=== PATIENT | female | born 1980 | race American Indian/Alaskan Native ===

== ENCOUNTER 2019-09-07 11:02 | Emergency (ER) | payer BC ==
[2019-09-07 11:07] VITALS: BP 178/108
--- NOTE | 2019-09-07 11:41 | XRay Report ---
XR RIGHT FINGERS 3 VIEWS INDICATION / CLINICAL INFORMATION: Trauma COMPARISON: None available. FINDINGS: BONES / JOINT(S): Fine osseous detail is slightly obscured by overlying bandage material. Allowing fo r this, there appears to be a minimally displaced fracture of the tuft of the thumb distal phalanx. SOFT TISSUES: Mild soft tissue swelling and irregularity of the thumb. ADDITIONAL FINDINGS: None. Signer Name: Eva Brown MD Signed: 09/07/2019 11:36 AM Workstation Name: [id number]
[2019-09-07] MEDS ORDERED: oxyCODONE /ACETAMINOPHEN 5-325MG TAB PO ONE (12:20)
--- NOTE | 2019-09-07 12:36 | Emergency Department Report ---
- General Chief Complaint: Laceration/Recheck/Suture Stated Complaint: RT THUMB LAC Source: patient Mode of arrival: Ambulatory Limitations: No Limitations - History of Present Illness Initial Comments: 38-year-old female who reports getting laceration while using her NINGA machine. She has alaceration of her left thumb,laceration of her left middle finger and an abrasion noted of left third finger. Tetanus up todate. Active bleeding of left thumb -: Sudden, hour(s) (1) Location: other (left hand) Extremity Location: Left: Hand (left thumb, left middle finger and left 4th finger abrasion) Place: home Patient Tetanus UTD: Yes Context: accidental Associated Symptoms: pain. denies: loss of feeling/numbness, suspect foreign body present, unable to move injured part, weakness followed by dizziness, nausea/vomiting Treatments Prior to Arrival: other (pressure dressing) - Related Data Previous Rx's Medication Instructions Recorded Last Taken Type Ibuprofen [Motrin] 600 mg PO Q6H PRN #24 tablet 09/07/19 Unknown Rx cephALEXin [Keflex] 500 mg PO Q12HR 14 Days #7 cap 09/07/19 Unknown Rx Allergies Allergy/AdvReac Type Severity Reaction Status Date / Time Iodine and Iodide Containing Allergy Hives Verified 09/07/19 11:07 Produc ED Review of Systems ROS: Stated complaint: RT THUMB LAC Other details as noted in HPI Comment: All other systems reviewed and negative Skin: other (left thumb laceration, left middle finger laceration , left 4th finger abrasion) ED Past Medical Hx - Past Medical History Previous Medical History?: No - Surgical History Past Surgical History?: Yes Additional Surgical History: Breast reduction 2007 - Social History Smoking Status: Never Smoker Substance Use Type: None - Medications Home Medications: Home Medications Medication Instructions Recorded Confirmed Last Taken Type Ibuprofen [Motrin] 600 mg PO Q6H PRN #24 tablet 09/07/19 Unknown Rx cephALEXin [Keflex] 500 mg PO Q12HR 14 Days #7 cap 09/07/19 Unknown Rx ED Physical Exam - General Limitations: No Limitations General appearance: alert - Head Head exam: Present: atraumatic - Eye Eye exam: Present: normal appearance. Absent: conjunctival injection - ENT ENT exam: Present: mucous membranes moist - Neck Neck exam: Present: normal inspection - Cardiovascular Cardiovascular Exam: Present: regular rate, normal heart sounds - Expanded Upper Extremity Exam Left Hand Wrist exam: Present: full ROM, nail avulsion (partial nail avulsion of the left thumb + bleeding, linear superficial laceration to left middle finger 1cm. Left 4th finger abrasion) Neuro motor exam: Present: thumb adduction intact, fingers 2-5 abduction intact Vascular: Present: radial pulse. Absent: vascular compromise, pulse deficit radial art - Neurological Exam Neurological exam: Present: alert, oriented X3 - Skin Skin exam: Present: warm, dry ED Course Vital Signs 09/07/19 11:05 Temperature 98.5 F Pulse Rate 78 Respiratory 18 Rate Blood Pressure 178/108 O2 Sat by Pulse 98 Oximetry - Laceration /Wound Repair Left Proximal Finger Wound Location: upper extremity Wound's Depth, Shape: nail-avulsed (left thumb partially avulsed nail.) Wound Explored: no foreign body removed Betadine Prep?: Yes Wound Repaired With: Dermabond (left middle finger dermabond used to close wound) Layer Closure?: No Sterile Dressing Applied?: Yes ED Medical Decision Making - Radiology Data Left hand xray FINDINGS: BONES / JOINT(S): Fine osseous detail is slightly obscured by overlying bandage material. Allowing for this, there appears to be a minimally displaced fracture of the tuft of the thumb distal phalanx. SOFT TISSUES: Mild soft tissue swelling and irregularity of the thumb. - Medical Decision Making 38 yo female sustained left thumb , left 3rd digit laceration and left 4th finger abrasion while using NINJA machine. Tetanus up to date. Xray of left hand + for left distal thumb tuft fracture. Partial nail avulsion of the left thumb. Left middle finger with superficial laceration closed with skin adhesive. Pt instruct of findings. Left thumb clean dry dressing and finger splint. Wound care instructions, oral antibiotics and ortho follow given. Critical care attestation.: If time is entered above; I have spent that time in minutes in the direct care of this critically ill patient, excluding procedure time. ED Disposition Clinical Impression: Laceration of finger nail bed Qualifiers: Encounter type: initial encounter Qualified Code(s): S61.319A - Laceration without foreign body of unspecified finger with damage to nail, initial encounter Fracture of distal phalanx of left thumb Qualifiers: Encounter type: initial encounter Fracture type: open Disposition: - TO HOME OR SELFCARE Is pt being admited?: No Does the pt Need Aspirin: No Condition: Stable Instructions: Finger Fracture (ED), Skin Adhesive Care (ED) Prescriptions: cephALEXin [Keflex] 500 mg PO Q12HR 14 Days #7 cap Ibuprofen [Motrin] 600 mg PO Q6H PRN #24 tablet PRN Reason: Pain Referrals: PRIMARY CAREMD [Referring] - 3-5 Days RUTH SUGGS MD [Staff Physician] - 3-5 Days Time of Disposition: 13:25
[2019-09-07] MEDS ORDERED: BACITRACIN ZINC OINT 28.4 GM TP ONE (13:09)
[2019-09-07] MEDS ORDERED: NEOMY 3.5 MG/BACIT 400 UNITS/POLY B 5000 UNITS/GM OINT PACKET TP ONE (14:03)
[2019-09-07] MEDS ORDERED: NEOMY 3.5 MG/BACIT 400 UNITS/POLY B 5000 UNITS OINT 15 GM TP ONE (15:03)
== END 2019-09-07 15:08 | disposition home or self-care (01) ==
LOC: ED 11:02
DX: S62.522B Displaced fracture of distal phalanx of left thumb, initial encounter for open fracture (principal); S61.213A Laceration without foreign body of left middle finger without damage to nail, initial encounter; S61.215A Laceration without foreign body of left ring finger without damage to nail, initial encounter; W31.89XA Contact with other specified machinery, initial encounter; Y93.89 Activity, other specified; Y92.89 Other specified places as the place of occurrence of the external cause; Y99.8 Other external cause status
CPT/HCPCS: 99283; A6250